=== PATIENT | female | born 1940 | race African-American/Black ===

== ENCOUNTER 2018-02-24 13:33 | Inpatient (IN) | payer MEDICARE, OTHER ==
[~2018-02-24] VITALS: Ht 165.1 cm; Wt 72.5 kg
[2018-02-24] MEDS ORDERED: CLINDAMYCIN 900MG IV 50 ML IV ONE (14:00)
[2018-02-24 14:12] LABS: Basophils # (auto) 0 uL; Basophils % (auto) 0.5 % (0.0-2.0); Eosinophils # (auto) 0.1 uL; Hematocrit 35.1 % (36.0-46.0); Hemoglobin 11.5 g/dL (12.2-16.2); Lymphocytes # (auto) 1.4 uL; Lymphocytes % (auto) 22.4 % (10.0-50.0); Mean Corpuscular Hemoglobin 29.4 pg (28.0-32.0); Mean Corpuscular Hgb Conc. 32.6 g/dL (32.0-36.0); Mean Corpuscular Volume 90.1 fL (80.0-100.0); Monocytes # (auto) 0.5 uL; Monocytes % (auto) 7.5 % (0.0-12.0); Neutrophils # (auto) 4.1 uL; Neutrophils % (auto) 67.6 % (37.0-80.0); Nucleated Red Blood Cells % 0.1 %; Platelet Count (auto) 248 10^3/uL (140-450); Red Cell Distribution Width 14.7 % (11.8-14.3); White Blood Cell 6.1 10^3/uL (4.4-10.8)
[2018-02-24 14:31] LABS: Albumin 3.1 g/dL (3.4-5.0); Bilirubin, Total 0.5 mg/dL (0.2-1.0); CRP High Sensitivity 0.42 mg/dL (< 0.3); Potassium 4.3 mmol/L (3.5-5.1); Total Protein 7.9 g/dL (6.4-8.2)
[2018-02-24] MEDS: SODIUM CHLORIDE 0.9% 1,000 ML IV SCH (16:18)
[2018-02-24] MEDS ORDERED: ACETAMINOPHEN 500 MG TAB PO PRN (16:30)
[2018-02-24] MEDS ORDERED: LORazepam 0.5 MG TAB PO PRN (16:30)
[2018-02-24] MEDS ORDERED: DEXTROSE (50%) 50ML SYRG IV PRN (16:30)
[2018-02-24] MEDS ORDERED: LACTULOSE 20Gm/30ML SOLN PO PRN (16:30)
[2018-02-24] MEDS ORDERED: HYDROcodone-ACET 5/325MG TAB PO PRN (16:30)
[2018-02-24] MEDS ORDERED: MORPHINE SULFATE 8mg/ml INJ SDV IV PRN ×2 (16:30)
[2018-02-24] MEDS ORDERED: hydrALAZINE HCL 25 MG TAB PO ONE (16:30)
[2018-02-24] MEDS ORDERED: NITROGLYCERIN 0.4 MG SL TAB SL PRN (16:30)
[2018-02-24] MEDS ORDERED: PROMETHAZINE HCL 25 MG/ML 1ML IV PRN (16:30)
[2018-02-24] MEDS ORDERED: TEMAZEPAM 15 MG CAP PO PRN (16:30)
[2018-02-24] MEDS: cefTRIAXone 1GM/10ml IVPUSH 10 ML IV SCH (16:45)
[2018-02-24 17:00] VITALS: BP 200/77
[2018-02-24] MEDS: ENOXAPARIN SOD 30 MG/0.3 ML SYRINGE SC SCH (17:00)
[2018-02-24] MEDS: ACCU-CHEK COMFORT CURVE STRIP VI SCH ×2 (17:00→22:47)
[2018-02-24] MEDS ORDERED: ENOXAPARIN SOD 40 MG/0.4 ML SYRINGE SC SCH (17:00)
[2018-02-24] MEDS: InsuLIN REG 1unit/0.01ml Soln (100units/ml) SC SCH ×2 (17:00→22:47)
[2018-02-24] MEDS: hydrALAZINE HCL 20 MG/ML VL IV PRN (17:35)
[2018-02-24] MEDS ORDERED: ACCU-CHEK COMFORT CURVE STRIP VI SCH (18:00)
[2018-02-24 18:19] LABS: Urine Bacteria NONE SEEN /hpf (None Seen); Urine Blood TRACE /uL (Negative); Urine Specific Gravity 1.011 (1.001-1.035); Urine WBC <1 /hpf (0 - 5)
[2018-02-24 22:00] VITALS: BP 138/68
[2018-02-24] MEDS: hydrALAZINE HCL 25 MG TAB PO SCH (22:09)
[2018-02-24] MEDS: CLINDAMYCIN 600MG IV 50 ML IV SCH (22:09)
[2018-02-25] VITALS (7 sets, daily range): BP systolic 149–186; BP diastolic 68–74
[2018-02-25 06:33] LABS: Basophils # (auto) 0 uL; Basophils % (auto) 0.6 % (0.0-2.0); Eosinophils # (auto) 0.2 uL; Hematocrit 29.9 % (36.0-46.0); Hemoglobin 9.8 g/dL (12.2-16.2); Lymphocytes # (auto) 1.2 uL; Lymphocytes % (auto) 21.8 % (10.0-50.0); Mean Corpuscular Hemoglobin 29.8 pg (28.0-32.0); Mean Corpuscular Hgb Conc. 32.8 g/dL (32.0-36.0); Mean Corpuscular Volume 90.8 fL (80.0-100.0); Monocytes # (auto) 0.6 uL; Monocytes % (auto) 10.3 % (0.0-12.0); Neutrophils # (auto) 3.4 uL; Neutrophils % (auto) 63.3 % (37.0-80.0); Platelet Count (auto) 209 10^3/uL (140-450); Red Blood Cells 3.29 10^6/uL (4.0-5.20); Red Cell Distribution Width 14.6 % (11.8-14.3); White Blood Cell 5.4 10^3/uL (4.4-10.8)
[2018-02-25 06:40] LABS: Albumin 2.6 g/dL (3.4-5.0); BUN/Creatinine Ratio 18.1; Bilirubin, Total 0.6 mg/dL (0.2-1.0); Calcium 8.6 mg/dL (8.5-10.1); Potassium 4.1 mmol/L (3.5-5.1); Total Protein 6.5 g/dL (6.4-8.2)
[2018-02-25] MEDS: InsuLIN REG 1unit/0.01ml Soln (100units/ml) SC SCH ×4 (07:00→21:44)
[2018-02-25] MEDS: CLINDAMYCIN 600MG IV 50 ML IV SCH ×3 (07:02→21:22)
[2018-02-25] MEDS: SODIUM CHLORIDE 0.9% 1,000 ML IV SCH ×3 (07:02→13:00)
[2018-02-25] MEDS: ACCU-CHEK COMFORT CURVE STRIP VI SCH ×4 (07:04→21:43)
[2018-02-25] MEDS: hydrALAZINE HCL 25 MG TAB PO SCH ×3 (07:04→21:22)
[2018-02-25] MEDS: ENOXAPARIN SOD 30 MG/0.3 ML SYRINGE SC SCH (08:59)
[2018-02-25] MEDS: PANTOPRAZOLE 40 MG TAB PO SCH (08:59)
[2018-02-25] MEDS: cefTRIAXone 1GM/10ml IVPUSH 10 ML IV SCH (09:00)
[2018-02-25] MEDS ORDERED: FURO40TA4 PO (11:11)
[2018-02-25] MEDS ORDERED: WARF1TAB36 PO (11:11)
[2018-02-25] MEDS ORDERED: EZET10TA6 PO (11:11)
[2018-02-25] MEDS ORDERED: NITR1SPR TL (11:11)
[2018-02-25] MEDS ORDERED: AMLO5TAB2 PO (11:11)
[2018-02-25] MEDS ORDERED: LOSA25TA9 PO (11:11)
[2018-02-25] MEDS: hydrALAZINE HCL 20 MG/ML VL IV PRN (12:27)
[2018-02-25 12:41] LABS: INR 2.01 (0.9-1.15); Prothrombin Time 20.7 sec (9.27-12.13)
[2018-02-25 13:59] LABS: % Iron Saturation 19.3 % (15-50)
[2018-02-25] MEDS ORDERED: amLODIPine BESYLATE 5 MG TAB PO ONE (17:00)
[2018-02-25] MEDS ORDERED: LOSARTAN POTASSIUM 25 MG TAB PO ONE (17:00)
[2018-02-25] MEDS ORDERED: WARFARIN SODIUM 2 MG TAB PO ONE (17:00)
[2018-02-26 05:00] VITALS: BP 149/64
[2018-02-26] MEDS: hydrALAZINE HCL 25 MG TAB PO SCH (05:38)
[2018-02-26] MEDS: CLINDAMYCIN 600MG IV 50 ML IV SCH (05:38)
[2018-02-26] MEDS: SODIUM CHLORIDE 0.9% 1,000 ML IV SCH (06:22)
[2018-02-26] MEDS: InsuLIN REG 1unit/0.01ml Soln (100units/ml) SC SCH ×2 (06:23→11:30)
[2018-02-26] MEDS: ACCU-CHEK COMFORT CURVE STRIP VI SCH ×2 (06:23→12:07)
[2018-02-26 06:33] LABS: Basophils # (auto) 0 uL; Basophils % (auto) 0.4 % (0.0-2.0); Eosinophils # (auto) 0.2 uL; Hematocrit 32.4 % (36.0-46.0); Hemoglobin 10.5 g/dL (12.2-16.2); Lymphocytes # (auto) 1.3 uL; Lymphocytes % (auto) 23.1 % (10.0-50.0); Mean Corpuscular Hemoglobin 29.5 pg (28.0-32.0); Mean Corpuscular Hgb Conc. 32.5 g/dL (32.0-36.0); Mean Corpuscular Volume 90.9 fL (80.0-100.0); Monocytes # (auto) 0.4 uL; Monocytes % (auto) 7.6 % (0.0-12.0); Neutrophils # (auto) 3.7 uL; Neutrophils % (auto) 65.9 % (37.0-80.0); Nucleated Red Blood Cells % 0.1 %; Platelet Count (auto) 228 10^3/uL (140-450); Red Blood Cells 3.57 10^6/uL (4.0-5.20); White Blood Cell 5.6 10^3/uL (4.4-10.8)
[2018-02-26 06:42] LABS: INR 2.01 (0.9-1.15); Partial Thromboplastin Time 36.2 sec (23.78-33.04); Prothrombin Time 20.7 sec (9.27-12.13)
[2018-02-26 06:47] LABS: Calcium 8.6 mg/dL (8.5-10.1); Magnesium 1.9 mg/dL (1.6-2.6); Potassium 4.4 mmol/L (3.5-5.1)
[2018-02-26 06:49] LABS: BUN/Creatinine Ratio 15.9
[2018-02-26 08:00] VITALS: BP 149/64
[2018-02-26] MEDS: cefTRIAXone 1GM/10ml IVPUSH 10 ML IV SCH (08:49)
[2018-02-26] MEDS: PANTOPRAZOLE 40 MG TAB PO SCH (08:50)
[2018-02-26 09:00] VITALS: BP 152/80
[2018-02-26] MEDS ORDERED: SODIUM CHLORIDE 0.9% 1,000 ML IV SCH (09:45)
[2018-02-26] MEDS ORDERED: amLODIPine BESYLATE 5 MG TAB PO SCH (10:00)
[2018-02-26] MEDS ORDERED: LOSARTAN POTASSIUM 25 MG TAB PO SCH (10:00)
[2018-02-26 10:43] VITALS: BP 152/80
[2018-02-26 13:00] VITALS: BP 159/72
[2018-02-26] MEDS ORDERED: WARFARIN SODIUM 2 MG TAB PO ONE (17:00)
== END 2018-02-26 12:05 | disposition home or self-care (01) | DRG 682 ==
LOC: EDBD 13:33 → ER 13:39 → TELE 13:40 → TELE-EAST 17:10
PROVIDERS: ADMIT Internal Medicine; ATTEND Internal Medicine
DX: I12.9 Hypertensive chronic kidney disease with stage 1 through stage 4 chronic kidney disease, or unspecified chronic kidney disease (principal); N17.0 Acute kidney failure with tubular necrosis; L03.116 Cellulitis of left lower limb; E11.21 Type 2 diabetes mellitus with diabetic nephropathy; I48.91 Unspecified atrial fibrillation; E66.9 Obesity, unspecified; E78.5 Hyperlipidemia, unspecified; I16.0 Hypertensive urgency; D63.8 Anemia in other chronic diseases classified elsewhere; I70.90 Unspecified atherosclerosis; Z83.3 Family history of diabetes mellitus; Z86.718 Personal history of other venous thrombosis and embolism; Z90.710 Acquired absence of both cervix and uterus; Z88.8 Allergy status to other drugs, medicaments and biological substances; Z88.0 Allergy status to penicillin; Z88.2 Allergy status to sulfonamides; Z68.26 Body mass index [BMI] 26.0-26.9, adult
CPT/HCPCS: 36415; 71045; 80048; 80053; 80061; 81001; 82962; 83036; 83540; 83550; 83735; 85025; 85610; 85652; 85730; 86141; 87040; 93005; 93971; 96361; 96365; J1815; J3490

== ENCOUNTER → 2019-11-22 | Outpatient (CLI) | payer MEDICARE, OTHER ==
[~2019-11-22] MED LIST: AMLO5TAB15 PO; EZET10TA22 PO; FURO40TA4 PO; LOSA25TA38 PO; NITR1SPR TL; WARF1TAB36 PO
[2019-11-22 10:51] LABS: Basophils # (auto) 0 uL; Basophils % (auto) 0.6 % (0.0-2.0); Eosinophils # (auto) 0 uL; Hematocrit 37.4 % (36.0-46.0); Hemoglobin 12.1 g/dL (12.2-16.2); Lymphocytes # (auto) 0.7 uL; Lymphocytes % (auto) 15.6 % (10.0-50.0); Mean Corpuscular Hemoglobin 30.6 pg (28.0-32.0); Mean Corpuscular Hgb Conc. 32.5 g/dL (32.0-36.0); Mean Corpuscular Volume 94.3 fL (80.0-100.0); Monocytes # (auto) 0.3 uL; Neutrophils # (auto) 3.5 uL; Neutrophils % (auto) 75.8 % (37.0-80.0); Platelet Count (auto) 199 10^3/uL (140-450); Red Blood Cells 3.97 10^6/uL (4.0-5.20); Red Cell Distribution Width 14.8 % (11.8-14.3); White Blood Cell 4.6 10^3/uL (4.4-10.8)
[2019-11-22 11:07] LABS: INR 1.05 (0.9-1.15); Partial Thromboplastin Time 30.5 sec (23.64-32.05)
[2019-11-22 11:30] LABS: Albumin 3.4 g/dL (3.4-5.0); Potassium 3.7 mmol/L (3.5-5.1)
[2019-11-22 11:33] LABS: BUN/Creatinine Ratio 9.4; Total Protein 7.6 g/dL (6.4-8.2)
== END | disposition home or self-care (01) ==
LOC: LAB 10:25
DX: N18.6 End stage renal disease (principal)
CPT/HCPCS: 36415; 80053; 85025; 85610; 85730